=== PATIENT | female | born 1980 | race Caucasian/White ===

== ENCOUNTER 2016-10-21 05:29 | Outpatient (CLI) | payer OTHER ==
[~2016-10-21] VITALS: Ht 165.1 cm; Wt 80.3 kg
[~2016-10-21 05:29] MED LIST: ACET-789 PO; ACHD5005 PO; DCS100C PO; DOXY25TA35 PO; INDM25C PO; INDO25OR2 PO; Ibuprofen PO; METR500T PO; PNV91TAB3 PO; PREN1TAB25 PO; PYRI25TA3 PO
[2016-10-28] MEDS ORDERED: IBUP-1773 PO (08:23)
[2016-10-28] MEDS ORDERED: HYDR-3812 PO (08:23)
[2016-10-28] MEDS ORDERED: DOCU100C37 PO (08:23)
== END 2016-10-21 09:43 ==
LOC: PREOP 05:29
PROVIDERS: ATTEND Obstetrics & Gynecology
DX: Z01.818 Encounter for other preprocedural examination (principal); O34.211 Maternal care for low transverse scar from previous cesarean delivery

== ENCOUNTER 2016-10-28 06:00 | Inpatient (IN) | payer OTHER ==
[~2016-10-28] VITALS: Ht 165.1 cm; Wt 81.6 kg
[~2016-10-28 06:00] MED LIST changes: +CITRIC ACID/SOB CIT (BICITRA) 30 ML UDC ONE; +LACTATED RINGERS 1,000 ML IV ONE; +METOCLOPRAMIDE INJ 10 MG/2 ML (REGLAN) ONE; +NS (IVPB) 50 ML ONE; +ceFAZolin 1,000 MG (ANCEF) VIAL ONE
[2016-10-28] MEDS ORDERED: CITRIC ACID/SOB CIT (BICITRA) 30 ML UDC PO ONE (06:15)
[2016-10-28] MEDS ORDERED: METOCLOPRAMIDE INJ 10 MG/2 ML (REGLAN) IV ONE (06:15)
[2016-10-28] MEDS ORDERED: FAMOTIDINE 20MG/2ML IV (PEPCID) IV ONE (06:15)
[2016-10-28 06:17] VITALS: BP 134/80
[2016-10-28] MEDS: LACTATED RINGERS 1,000 ML IV PRN ×2 (06:20→07:30)
[2016-10-28] MEDS ORDERED: fentaNYL INJECTION 100 MCG/2 ML AMP ONE (06:43)
[2016-10-28 07:01] LABS: BASOPHILS % (AUTO) 0 % (0-10); EOSINOPHILS % (AUTO) 0 % (0-10); LYMPHOCYTES # (AUTO) 1.4 X 10^3 (1.0-4.0); LYMPHOCYTES % (AUTO) 19 % (12-44); MEAN CORPUSCULAR HEMOGLOBIN 31 PG (25-34); MEAN CORPUSCULAR HGB CONC 34 G/DL (32-36); MEAN CORPUSCULAR VOLUME 91 FL (80-99); MONOCYTES # (AUTO) 0.6 X 10^3 (0.0-1.0); MONOCYTES % (AUTO) 8 % (0-12); NEUTROPHILS # (AUTO) 5.4 X 10^3 (1.8-7.8); NEUTROPHILS % (AUTO) 73 % (42-75); PLATELET COUNT 142 10^3/uL (130-400); RED BLOOD COUNT 3.93 10^6/uL (4.35-5.85); RED CELL DISTRIBUTION WIDTH 12.4 % (10.0-14.5); WHITE BLOOD COUNT 7.4 10^3/uL (4.3-11.0)
[2016-10-28] MEDS ORDERED: OXYTOCIN/NORMAL SALINE 500 ML IV ONE ×2 (07:14→08:03)
[2016-10-28] MEDS ORDERED: HYDROmorphone (DILAUDID) 2 MG/ML VIAL IVP PRN (07:15)
[2016-10-28] MEDS ORDERED: TETANUS,DIPTH,PERTUSS P/F (BOOSTRIX) 0.5 ML VIAL IM SCH (07:15)
[2016-10-28] MEDS ORDERED: MEASLES,MUMPS,RUBELLA 1 EA INJ SC SCH (07:15)
--- NOTE | 2016-10-28 07:15 | History & Physical-OB ---
OB - Chief Complaint & HPI Date Date of Admission: Date of Admission: October 28, 2016 at 6:00 am Chief Complaint/History OB-Reason for Admission/Chief: Section Hx : 8 Hx Para: 5 Expected Date of Delivery: November 03, 2016 Indication for : desires repeat Admission Nurse Assessment Rev: Yes History of Labs O pos antibody neg RI RPR NR HBsAg NR HIV NR GC neg GBS + Allergies and Home Medications Allergies Coded Allergies: Sulfa (Sulfonamide Antibiotics) (Unverified Allergy, Unknown, 09/27/13) Home Medications Pnv95/Ferrous Fumarate/FA 1 Each Tablet, 1 EACH PO DAILY, (Reported) OB - History Hx of Present Care: Yes Ultrasounds: Normal mid trimester US Obstetrical Complications: Other (cerclage placement at 15 weeks) Obstetrical History Hx Termination: No Hx Multiple Gestation: No Hx Stillbirth: No Hx Complication: Yes (INCOMPETENT CERVIX, HX PLACENTA PREVIA) Hx Induced Hypertens: No Hx Maternal Gestational Diabet: No Delivery History Hx Dystocia: No Hx Large For Gestational Age I: No Hx Small for Gestational Age I: No Hx Section: Yes Hx Vaginal Delivery Post C-Sec: Yes Hx Blood Disorders: No Adverse Rxn to Tranfusion: No Patient Past Medical History hx of "brain cyst" Immunizations Tetanus Booster (TDap): Less than 5yrs Date of Influenza Vaccine: Apr 23, 2016 OB - Admission Exam Physical Exam HEENT: NCAT Heart: Rhythm Normal Lungs: Clear Abdomen: Gravid Extremities: Normal Reflexes: Normal Cervical Dilatation: None Effacement: 75% Station: -2 Membranes: Intact Heart Rate: 130's Accelerations: Accelerations Present Decelerations: No Decelerations Short Term Variability: Present Senior Living Variability: Average (6-25) Contractions on Admission: >10 Minutes Apart Intensity: Mild Labs Laboratory Tests Test 10/28/16 06:45 Range/Units White Blood Count 7.4 4.3-11.0 10^3/uL Red Blood Count 3.93 L 4.35-5.85 10^6/uL Hemoglobin 12.3 11.5-16.0 G/DL Hematocrit 36 35-52 % Mean Corpuscular Volume 91 80-99 FL Mean Corpuscular Hemoglobin 31 25-34 PG Mean Corpuscular Hemoglobin Concent 34 32-36 G/DL Red Cell Distribution Width 12.4 10.0-14.5 % Platelet Count 142 130-400 10^3/uL Mean Platelet Volume 12.0 H 7.4-10.4 FL Neutrophils (%) (Auto) 73 42-75 % Lymphocytes (%) (Auto) 19 12-44 % Monocytes (%) (Auto) 8 0-12 % Eosinophils (%) (Auto) 0 0-10 % Basophils (%) (Auto) 0 0-10 % Neutrophils # (Auto) 5.4 1.8-7.8 X 10^3 Lymphocytes # (Auto) 1.4 1.0-4.0 X 10^3 Monocytes # (Auto) 0.6 0.0-1.0 X 10^3 Eosinophils # (Auto) 0.0 0.0-0.3 10^3/uL Basophils # (Auto) 0.0 0.0-0.1 10^3/uL OB - Assessment/Plan/Diagnosis Assessment Assessment: section Plan Plan: Section Discharge Diagnosis Diagnosis: 36 yo @ 39.1 Previous c/s x 2 Cerclage placement at 15 weeks JUDAH + MARIOLA LABOY DO October 28, 2016 7:15 am
[2016-10-28] MEDS ORDERED: OXYTOCIN/NORMAL SALINE 500 ML IV SCH (08:00)
[2016-10-28] MEDS ORDERED: DOCU100C37 PO (08:23)
[2016-10-28] MEDS ORDERED: HYDR-3812 PO (08:23)
[2016-10-28] MEDS ORDERED: IBUP-1773 PO (08:23)
--- NOTE | 2016-10-28 08:25 | Discharge Inst-Women's Service ---
Discharge Inst-Women's Serv Depart Medication/Instructions New, Converted or Re-Newed RX: RX on Chart Consults/Follow Up Additional Follow Up: Yes Activity Activity: Activity as Tolerated Driving Instructions: No Driving for 1 Week NO SMOKING: NO SMOKING Nothing Inside Vagina: No Douching, No [place], No Tampons Diet Discharge Diet: No Restrictions Symptoms to Report to : Bleeding Excessive, Pain Increased, Fever Over 101 Degrees F, Vaginal Bleeding Increase, Questions/Concerns For Any Problems or Questions: Contact Your Physician Skin/Wound Care Infection Signs and Symptoms: Increased Redness, Foul Odor of Wound, Increased Drainage, Skin Itchy or Has a Rash, Increased Swelling, Temperature Above 101 F Operative Area Clean and Dry: Keep Incision Clean/Dry, You May Remove Bandage Stitches/[place]/Dermabond: Dermabond, Care of Stitches Bathing Instructions: MARIOLA Santos DO October 28, 2016 8:25 am
[2016-10-28] MEDS ORDERED: ceFAZolin 1 GM/NS 50 ML IVPB IV ONE ×2 (08:30)
[2016-10-28] MEDS: KETOROLAC 30 MG/ML VIAL IVP SCH ×3 (09:38→23:11)
[2016-10-28 10:00] VITALS: BP 121/73
[2016-10-28 11:15] VITALS: BP 136/80
[2016-10-28 12:10] VITALS: BP 115/72
[2016-10-28] MEDS ORDERED: CATHETER FLUSH 10 ML SYR IV SCH (14:00)
[2016-10-28 16:45] VITALS: BP 123/78
[2016-10-28] MEDS: HYDROcodone/APAP 5 MG/325 MG (LORTAB) TAB PO PRN (20:51)
[2016-10-28] MEDS: DOCUSATE SODIUM 100 MG (COLACE) CAP PO SCH (20:52)
[2016-10-28 20:55] VITALS: BP 131/72
--- NOTE | 2016-10-28 22:59 | OPERATIVE REPORT ---
DATE OF SERVICE: 10/28/2016 PREOPERATIVE DIAGNOSES: 1. A 36-year-old G8, P5 at 39 weeks gestation. 2. Previous section x 3. 3. Cerclage placement at 15 weeks. POSTOPERATIVE DIAGNOSES: 1. A 36-year-old G8, P5 at 39 weeks gestation. 2. Previous section x 3. 3. Cerclage placement at 15 weeks. 4. Nuchal cord x 2. PROCEDURES: Repeat low transverse section with removal of cerclage. SURGEON: Matthieu Laboy DO ANESTHESIA: Spinal. ESTIMATED BLOOD LOSS: 500 cc URINE OUTPUT: 120 mL, clear at the end of the procedure. FLUIDS: 1500 mL of lactated Ringer solution. FINDINGS: A live female weighing 7 pounds 14 ounces. Apgars of 9 and 9. Grossly normal-appearing uterus, bilateral fallopian tubes, ovaries, dense scar tissue of the peritoneum to the rectus muscle, dense scarring of the subcutaneous adipose tissue to the rectus fascia. SPECIMEN SENT: None. INDICATIONS FOR PROCEDURE: This is a 36-year-old female is a patient who had sought care with me. She has history of cervical incompetence. She received a cerclage at approximately 15 weeks. She planned to proceed with repeat at the time of care and we discussed this throughout her care. Prior to surgery, we briefly reviewed the risks of this procedure including risk of bleeding, infection, damage to any surrounding structures, including but not limited to bowel, bladder, ureter, kidneys, risks from cerclage removal and laceration of the cervix. After everything was discussed with the patient, consent was obtained in the preoperative area and the patient was taken to the operating room. OPERATIVE REPORT IN DETAIL: Once in the operating room, spinal anesthesia was found to be adequate. She was placed in the supine position with leftward tilt. She was prepped and draped in the normal sterile fashion. The patient was first frog legged and setup on a bed veliz so that I can remove the cerclage. I placed a speculum into the patient's vagina and I was able to visualize both of my cerclage sutures. They were grasped using long ring forceps and the knots were cut allowing me to remove the cerclages without difficulty. They both appeared to be removed intact. I then stepped away from the patient where the nurses proceeded to prep and drape the patient in a normal sterile fashion. I then tested the anesthesia and it was found to be adequate. I proceeded with making a Pfannenstiel skin incision through the previously existing scar using a knife and carried down to the underlying fascia using Bovie cautery. The fascial incision was extended laterally using Bovie cautery. The superior aspect of the facial incision was then grasped with Anna clamps, tented upward and dissected off the underlying rectus muscles. Inferior aspect of the fascial incisions were grasped with Anna clamps, opened and dissected the underlying rectus muscles. The rectus muscles were then dissected down the midline using Page scissors, which exposes the peritoneum, which is entered bluntly and this incision is extended using Metzenbaum scissors with care of the underlying bladder and bowel. Once adequate peritoneal access was obtained, I placed the Jaems 0-ring retractor in the peritoneal incision, which offers excellent lateral and side wall retraction. I then proceeded with making an incision through the vesicouterine peritoneum of the lower uterine segment and bluntly dissected the bladder off of the lower uterine segment, which is scarred to the lower uterine segment. I proceeded with my myotomy until membranes were visualized at which point I extended the uterine incision laterally and superiorly using Band-Aid scissors. I then performed amniotomy using Allis clamp, clear fluid was noted. The infant was found to be in vertex presentation. With gentle fundal pressure, the infant's head was delivered up through the incision where it was bulb suctioned both nares and oropharynx. I reduced the nuchal cord x 2. The anterior and posterior shoulders were delivered. The infant was then brought to the operative field where cord was doubly clamped and cut. The was handed off to the waiting pediatric nurses in attendance. Cord blood was collected. The 3 vessel cord with intact placenta was delivered spontaneously thereafter. IV Pitocin was initiated to facilitate uterine contraction. Uterine fundus became firmer with bimanual massage. The uterus was then exteriorized and cleared of all endometrial clots and debris. I then proceeded with closing the uterine incision using 0 Vicryl suture in running locked fashion, 2nd layer of embricating 0-Monocryl was placed. Excellent hemostasis was noted after doing so. The uterus was then placed back within the pelvis and copiously irrigated using normal saline. There was no active bleeding was noted from any of my dissections points. I then proceeded with placing Interceed over my low transverse incision to prevent postoperative adhesion formation. I then closed the peritoneum using 3-0 Vicryl suture in a running fashion. The rectus muscles were reapproximated using 3-0 Vicryl suture in interrupted fashion. The fascia was reapproximated with 0 Vicryl suture in running fashion. The skin was then reapproximated using 4-0 Monocryl in a running subcuticular. Dermabond was applied to the incision with sterile dressings and adhesive white tape. The patient tolerated the procedure well and was sent to recovery area in stable condition. Lap and sponge counts correct at the end of the procedure. Instrument count is correct as well. One gram of Ancef was given preoperatively for infection prophylaxis. Job ID: [id number] DocumentID: [id number] Dictated Date: 10/28/2016 08:32:37 Tumbler Operator Date: 10/28/2016 20:21:31 Dictated By: MATTHIEU LABOY DO
[2016-10-29 01:35] VITALS: BP 125/74
[2016-10-29] MEDS ORDERED: KETOROLAC 30 MG/ML VIAL ONE (04:40)
[2016-10-29 04:45] VITALS: BP 128/77
[2016-10-29] MEDS: KETOROLAC 30 MG/ML VIAL IVP SCH (04:46)
[2016-10-29 06:19] LABS: BASOPHILS % (AUTO) 0 % (0-10); EOSINOPHILS # (AUTO) 0.1 10^3/uL (0.0-0.3); EOSINOPHILS % (AUTO) 1 % (0-10); LYMPHOCYTES # (AUTO) 1.1 X 10^3 (1.0-4.0); LYMPHOCYTES % (AUTO) 11 % (12-44); MEAN CORPUSCULAR HEMOGLOBIN 31 PG (25-34); MEAN CORPUSCULAR HGB CONC 33 G/DL (32-36); MEAN CORPUSCULAR VOLUME 92 FL (80-99); MEAN PLATELET VOLUME 12.2 FL (7.4-10.4); MONOCYTES # (AUTO) 0.6 X 10^3 (0.0-1.0); MONOCYTES % (AUTO) 6 % (0-12); NEUTROPHILS # (AUTO) 7.7 X 10^3 (1.8-7.8); NEUTROPHILS % (AUTO) 81 % (42-75); PLATELET COUNT 117 10^3/uL (130-400); RED BLOOD COUNT 3.51 10^6/uL (4.35-5.85); RED CELL DISTRIBUTION WIDTH 12.6 % (10.0-14.5); WHITE BLOOD COUNT 9.4 10^3/uL (4.3-11.0)
[2016-10-29 08:55] VITALS: BP 132/84
[2016-10-29] MEDS: DOCUSATE SODIUM 100 MG (COLACE) CAP PO SCH (08:57)
--- NOTE | 2016-10-29 09:55 | Progress Note-Standard ---
Standard Progress Note Progress Notes/Assess & Plan Progress/Assessment & Plan Patient doing well POD 1 RLTCS. No concerns voiced. Ambulating and voiding freely. Vital Sign - Last 24 Hours 10/28/16 10/28/16 10/28/16 10/28/16 10:00 11:15 12:10 16:45 Temp 98.4 98.6 98.8 98.6 Pulse 82 77 68 80 Resp 18 18 18 18 B/P (MAP) 121/73 136/80 115/72 123/78 Pulse Ox 99 97 99 97 O2 Delivery Room Air Room Air Room Air Room Air 10/28/16 10/29/16 10/29/16 10/29/16 20:55 01:35 04:45 08:55 Temp 98.4 98.8 98.4 98.0 Pulse 96 94 85 84 Resp 18 18 18 B/P (MAP) 131/72 125/74 128/77 132/84 Pulse Ox 98 96 95 97 O2 Delivery Room Air Room Air Room Air Room Air Intake and Output 10/28/16 10/28/16 10/29/16 15:00 23:00 07:00 Intake Total 1050 ml 1240 ml 900 ml Output Total 620 ml 650 ml 1150 ml Balance 430 ml 590 ml -250 ml Laboratory Tests Test 10/29/16 05:30 Range/Units White Blood Count 9.4 4.3-11.0 10^3/uL Red Blood Count 3.51 L 4.35-5.85 10^6/uL Hemoglobin 10.8 L 11.5-16.0 G/DL Hematocrit 32 L 35-52 % Mean Corpuscular Volume 92 80-99 FL Mean Corpuscular Hemoglobin 31 25-34 PG Mean Corpuscular Hemoglobin Concent 33 32-36 G/DL Red Cell Distribution Width 12.6 10.0-14.5 % Platelet Count 117 L 130-400 10^3/uL Mean Platelet Volume 12.2 H 7.4-10.4 FL Neutrophils (%) (Auto) 81 H 42-75 % Lymphocytes (%) (Auto) 11 L 12-44 % Monocytes (%) (Auto) 6 0-12 % Eosinophils (%) (Auto) 1 0-10 % Basophils (%) (Auto) 0 0-10 % Neutrophils # (Auto) 7.7 1.8-7.8 X 10^3 Lymphocytes # (Auto) 1.1 1.0-4.0 X 10^3 Monocytes # (Auto) 0.6 0.0-1.0 X 10^3 Eosinophils # (Auto) 0.1 0.0-0.3 10^3/uL Basophils # (Auto) 0.0 0.0-0.1 10^3/uL Incision: c/d/i Diagnosis: POD 1 RLTCS P: Continue routine po care anticipate dc later today MARIOLA LABOY DO October 29, 2016 9:55 am
[2016-10-29 12:25] VITALS: BP 130/84
[2016-10-29] MEDS: IBUPROFEN 600 MG (MOTRIN) TAB PO SCH ×2 (12:25→18:40)
--- NOTE | 2016-10-29 12:46 | Anesthesia-Regional Post-Op ---
Regional Patient Condition Mental Status: Alert, Oriented x3 Circulation: Same as Pre-Op Headache: Absent Sensation: Full Recovery Motor Block: Absent Post Op Complications Complications None Follow Up Care/Instructions Patient Instructions None needed. Anesthesia/Patient Condition Patient is doing well, no complaints, stable vital signs, no apparent adverse anesthesia problems. No complications reported per nursing. ROSEANN ROMERO CRNA October 29, 2016 12:46
[2016-10-29] MEDS: HYDROcodone/APAP 5 MG/325 MG (LORTAB) TAB PO PRN (16:32)
[2016-10-29 18:44] VITALS: BP 131/84
[2016-10-30] MEDS: DOCUSATE SODIUM 100 MG (COLACE) CAP PO SCH ×2 (00:52→09:48)
[2016-10-30] MEDS: IBUPROFEN 600 MG (MOTRIN) TAB PO SCH ×3 (00:53→11:44)
[2016-10-30 00:55] VITALS: BP 123/76
[2016-10-30 06:10] VITALS: BP 121/74
--- NOTE | 2016-10-30 07:52 | Postpartum Progress Note ---
Post Op Post-operative Day #2 Subjective: Patient is without complaints. Ambulating, voiding after terrell removed. Tolerating a regular diet without nausea or vomiting. Normal lochia. Pain is well controlled with oral pain medications. Breast feeding. Objective: Vital Sign - Last 12Hours 10/30/16 00:55 Temp 98.2 Pulse 79 Resp 18 B/P (MAP) 123/76 Pulse Ox 95 O2 Delivery Room Air Physical Exam: General - Alert and oriented, no apparent distress Abdomen - Soft, appropriately tender to palpation, non-distended, fundus firm at umbilicus Incision - clean, dry and intact; no erythema or induration, no drainage Extremities - no edema, negative Rosie's bilaterally no new labs - Hgb 10.8 on POD1 Assessment: 36 y/o post-operative day # 2, status post RLTCS. Recovering well, hemodynamically stable Acute blood loss anemia Hgb 10.8 Plan: Routine post-operative care. Encourage breast feeding. Encourage ambulation. VTE prophylaxis: SCDs. Plan for discharge today f/u with Dr. Bernard as per dc instructions Vitals - Labs Vital Signs - I&O Vital Signs Date Time Temp Pulse Resp B/P (MAP) Pulse Ox O2 Delivery O2 Flow Rate FiO2 10/30/16 00:55 98.2 79 18 123/76 95 Room Air 10/29/16 18:44 98.0 81 18 131/84 98 Room Air 10/29/16 12:25 98.3 79 18 130/84 95 Room Air 10/29/16 08:55 98.0 84 18 132/84 97 Room Air HARI NUGENT MD October 30, 2016 07:52
[2016-10-30 09:46] VITALS: BP 132/77
[2016-10-30] MEDS: HYDROcodone/APAP 5 MG/325 MG (LORTAB) TAB PO PRN (09:51)
== END 2016-10-30 12:30 | disposition home or self-care (01) | DRG 765 ==
LOC: LDRP 06:00
PROVIDERS: ADMIT Obstetrics & Gynecology; ATTEND Obstetrics & Gynecology
PROC: 0UCC7ZZ Extirpation of Matter from Cervix, Via Natural or Artificial Opening (ICD-10-PCS; 2016-10-28)
PROC: 10D00Z1 Extraction of Products of Conception, Low, Open Approach (ICD-10-PCS; principal; 2016-10-28 07:08)
DX: O34.211 Maternal care for low transverse scar from previous cesarean delivery (principal); O34.33 Maternal care for cervical incompetence, third trimester; O99.824 Streptococcus B carrier state complicating childbirth; O69.81X0 Labor and delivery complicated by cord around neck, without compression, not applicable or unspecified; Z37.0 Single live birth; Z3A.39 39 weeks gestation of pregnancy; Z23 Encounter for immunization
CPT/HCPCS: 36415; 85025; 86850; 86900; 86901; 90715; 94664